=== PATIENT | female | born 1955 | race Caucasian/White ===

== ENCOUNTER → 2023-08-05 15:00 | Outpatient (REF) | payer MEDICARE, SELFPAY | LOC: HWRCS 15:00 | PROVIDERS: ATTENDING PHYSICIAN Internal Medicine Cardiovascular Disease; FAMILY PHYSICIAN Family Medicine | DX: R93.1 Abnormal findings on diagnostic imaging of heart and coronary circulation (principal); R06.09 Other forms of dyspnea; R94.31 Abnormal electrocardiogram [ECG] [EKG] | CPT/HCPCS: 93306 ==

== ENCOUNTER 2023-11-18 13:36 | Emergency (ER) | payer MEDICARE, SELFPAY ==
[2023-11-18 13:37] VITALS: BMI 26.7
[2023-11-18 13:43] VITALS: BP 137/69
--- NOTE | 2023-11-18 14:23 | ED.SKININJ ---
HPI-Injury
General
Chief Complaint: Bite
Time Seen by Provider: 11/18/23 13:47
History of Present Illness-Injury
Initial Injury comments:
68 yo female presents to the Emergency Dept for evaluation of R hand redness/swelling after being bitten by her cat yesterday, was started on Augmentin yesterday by her PCP. Tetanus was also updated. pt denies fever. Two doses of abx taken thus far
Review of Systems
Review of Systems
Allergies reviewed?: Yes
All Other Systems: ROS reviewed and negative except as documented in HPI and ROS
Phy Exam
Physical Exam
Physical Exam:
GEN: Well appearing, NAD, WDWN
HEENT: Oral mucosa moist, no scleral icterus
Cardiac: Regular rate
Lung: No respiratory distress, no tachypnea
MSK: Diffuse swelling/erythema to the R dorsal hand associated with two small puncture wounds. No lymphangitis. No pain w/ PROM to the R fingers
Skin: Good color, no pallor or jaundice, no rashes
Neuro: AO x3, moves all extremities freely
Psych: Calm, cooperative
Course
Orders/Labs/Results
Orders:
Orders
11/18/23 14:45
Complete Blood Count/With Diff Urgent
Comprehensive Metabolic Panel Urgent
Ampicillin/Sulbactam 3 G [Unasyn] 3 gm 0.9% Sodium Chloride 100 ml [Nss] 100 ml IV NOW
Abnormal Lab Results
11/18/23
14:45
Absolute Lymphs (auto) 1.1 L 10^3/uL
(1.2-3.4)
Lymphocytes % 17.6 L %
(20.5-51.1)
Potassium 3.4 L mmol/L
(3.5-5.1)
Chloride 97 L mmol/L
(98-107)
BUN 18 H mg/dl
(7-17)
Glucose 116 H mg/dl
(70-99)
11/18/23 14:45
11/18/23 14:45
Vital Signs
Initial and Last Documented VS:
Initial Vital Signs
Temp Pulse Resp BP Pulse Ox
99.0 F 77 19 137/69 95
11/18/23 13:43 11/18/23 13:43 11/18/23 13:43 11/18/23 13:43 11/18/23 13:43
Last Documented Vital Signs
Temp Pulse Resp BP Pulse Ox
99.0 F 77 16 137/69 95
11/18/23 13:43 11/18/23 13:43 11/18/23 14:00 11/18/23 13:43 11/18/23 13:43
MDM/Problems Addressed
MDM/Problems Addressed:
Pt is clinically well, do not see advanced infectious process warranting admission for IV abx. Gave dose of IV unasyn here, continue augmentin, close ED f/u if symptoms worsening
*Critical Care Note
Total Time (30-74mins, 75-104mins- exclusive of procedures): Not Applicable
ED Attending Note
-
Portions of this chart may have been created with voice recognition software.� Occasional wrong word or��sound alike� substitutions may have occurred due to the inherent limitations of voice recognition software.
Discharge Plan
Departure
Patient Disposition: Home (Routine Discharge)
Date of Disposition: 11/18/23
Time of Disposition: 15:47
Patient with high blood pressure during this ER visit?: No
Discharge Problem:
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
Instructions: Animal and human bites
Prescriptions:
No Action
fluoxetine 10 mg Tablet
10 mg PO DAILY
amoxicillin-pot clavulanate [Augmentin] 875-125 mg Tablet
1 tab PO BID
rosuvastatin [Crestor] 10 mg Tablet
10 mg PO DAILY
hydrochlorothiazide 12.5 mg Tablet
12.5 mg PO DAILY
acetaminophen [Tylenol] 325 mg Tablet
650 mg PO BIDPRN PRN (Reason: mild pain)
aspirin 81 mg Tablet,Delayed Release (Dr/Ec)
81 mg PO DAILY
cholecalciferol (vitamin D3) [Vitamin D3] 25 mcg (1,000 unit) Tablet
25 mcg PO DAILY
Referrals:
NONE,* [Family Provider] -
Activity Restrictions/Additional Instructions:
Continue Augmentin
Elevate the hand to decrease swelling
Ice often
Interventions
Interventions:
*Risk Screen - Suicide Last Done: 11/18/23 14:03
*General Assessment Last Done: 11/18/23 14:03
*Neglect/Abuse Screening Last Done: 11/18/23 14:03
ED- Fall Risk Assessment Last Done: 11/18/23 14:03
*Nursing Disposition Last Done: 11/18/23 15:48
ED-Skin Assessment Last Done: 11/18/23 14:03
Discharge Date and Time
Discharge Date/Time: 11/18/23 15:48
Print Language: POLISH
[2023-11-18] MEDS: UNASYN IV (15:00)
[2023-11-18 15:07] LABS: % Basophils 0.5 % (0-2); % Eosinophils 2.4 % (0-6); % Immature Granulocytes 0.3 % (0-0.5); % Lymphocytes 17.6 % (20.5-51.1); % Monocytes 7.9 % (1.7-9.3); % Neutrophils 71.3 % (42.2-75.2); Absolute Eosinophils 0.2 10^3/uL (0-0.7); Absolute Lymphocytes 1.1 10^3/uL (1.2-3.4); Absolute Monocytes 0.5 10^3/uL (0.1-0.6); Absolute Neutrophils 4.4 10^3/uL (1.4-6.5); Hematocrit 40.8 % (37.0-47.0); Hemoglobin 13.9 g/dL (12.0-16.0); Mean Corp Hgb Conc. 34.1 g/dL (33.0-37.0); Mean Corpuscular Hgb 30.4 pg (27.0-31.0); Mean Corpuscular Volume 89.3 fL (81.0-99.0); Mean Platelet Volume 9.3 fL (7.4-10.4); Nucleated Red Blood Cells % 0 %; Platelet Count 221 10^3/uL (130-400); Red Blood Cell Count 4.57 10^6/uL (4.20-5.40); Red Cell Dist. Width 12.4 % (11.5-14.5); White Blood Cell Count 6.2 10^3/uL (4.8-10.8)
[2023-11-18 15:19] LABS: ALT (SGPT) 32 U/L (0-35); AST (SGOT) 30 U/L (14-36); Albumin 4.7 g/dl (3.5-5.0); Alkaline Phosphatase 89 U/L (38-126); Blood Urea Nitrogen 18 mg/dl (7-17); Calcium 9.6 mg/dl (8.4-10.2); Carbon Dioxide 29 mmol/L (22-30); Chloride 97 mmol/L (98-107); Estimated Creatinine Clearance 65 ml/min; Glucose 116 mg/dl (70-99); Potassium 3.4 mmol/L (3.5-5.1); Sodium 142 mmol/L (135-145); Total Bilirubin 0.8 mg/dl (0.2-1.3); Total Protein 7.3 g/dl (6.3-8.2); eGFR > 60.00
== END 2023-11-18 15:48 | disposition home or self-care (01) ==
LOC: EMR 13:36
PROVIDERS: Physician Assistant; EMERGENCY PHYSICIAN Emergency Medicine
DX: L03.113 Cellulitis of right upper limb (principal); A28.0 Pasteurellosis; W55.01XA Bitten by cat, initial encounter
CPT/HCPCS: 99284; 96365; 80053; 85025

== ENCOUNTER 2023-11-19 15:24 | Observation (INO) | payer MEDICARE, SELFPAY ==
[2023-11-19 11:48] VITALS: BP 145/72
--- NOTE | 2023-11-19 12:23 | ED.GENMED ---
History of Present Illness
General
Chief Complaint: Skin Problem
Source: patient
Exam Limitations: none
Time Seen by Provider: 11/19/23 12:14
Nursing documentation reviewed up to this point in time: agreed with
History of Present Illness
History of Present Illness:
Patient is a 68-year-old female who presents to the ER for evaluation. Patient had a cat bite 2 days ago was seen here yesterday for right hand swelling and redness. She was initially started on Augmentin but came to the ER yesterday because of
this redness. She was given 1 dose of Unasyn and instructed to take Augmentin. It initially occurred once as documented she did take Augmentin Wednesday evening Augmentin yesterday morning had a dose of Unasyn here in the hospital and also had
Augmentin this morning. She went to her family doctor today because although swelling is improving she has had extension of the redness. She denies any fever chills she does not feel ill.
Review of Systems
Review of Systems
Allergies reviewed?: Yes
All Other Systems: ROS reviewed and negative except as documented in HPI and ROS
Constitutional: Reports no symptoms; Denies fever, fatigue or chills
Musculoskeletal: Reports other (Cat bite to right hand with swelling/redness )
Skin: Reports other (see above )
Neurological: Reports no symptoms
Psychiatric: Reports no symptoms
Phy Exam
General Physical Exam
General Presentation: no apparent distress
General age: appears stated age
General Skin: warm and dry
General Habitus: normal
General Mental: alert
General Hydration: appears well hydrated
Neurological Exam
Neurological Exam: alert and oriented x3
Musculoskeletal Exam
Musculoskeletal Exam: other (Right upper EXTR and strong pulses patient with mild dorsal swelling and erythema to the right hand with extension of erythema to proximal wrist and dorsal forearm)
Skin Exam
Skin Exam: normal color and warm/dry
Psychiatric Exam
Psychiatric Exam: normal mood/affect
Course
Orders/Labs/Results
Orders:
Orders
11/19/23 13:36
IV Insert/Care/Rem.- Treatment PRN
11/19/23 13:52
Complete Blood Count/With Diff Urgent
Comprehensive Metabolic Panel Urgent
Ampicillin/Sulbactam 3 G [Unasyn] 3 gm 0.9% Sodium Chloride 100 ml [Nss] 100 ml IV NOW
11/19/23 15:07
Admit/Transfer Patient As Directed
Co-Sign Provider:
Level of Care: Observation services
Assign to:: Medical/Surgical
Physician / Group: rambo
Diagnosis: cat bite cellulitis
PRN Pain Medication Management As Directed
May give lesser potent ordered pain med per pt: Yes
preference::
Protocol:: Medication orders for pain may be administered in a
manner that supports deferring to patient preference
when the pt is:
- Requesting an ordered lesser potent pain medication.
Least to most potent pain medications are defined
as: acetaminophen < NSAID < tramadol < opioids
(morphine, oxycodone, hydromorphone).
- Requesting a lesser dose of the same medication IF
ORDERED.
- Requesting a less intrusive route of administration
if both routes are prescribed by the provider (PO <
IV).
11/19/23 15:08
Code Status As Directed
Resuscitation Status: Full Code
Abnormal Lab Results
11/19/23
13:52
Absolute Lymphs (auto) 0.9 L 10^3/uL
(1.2-3.4)
Lymphocytes % 15.9 L %
(20.5-51.1)
Glucose 124 H mg/dl
(70-99)
11/19/23 13:52
11/19/23 13:52
Vital Signs
Initial and Last Documented VS:
Initial Vital Signs
Temp Pulse Resp BP Pulse Ox
98.8 F 77 16 145/72 98
11/19/23 11:48 11/19/23 11:48 11/19/23 11:48 11/19/23 11:48 11/19/23 11:48
Last Documented Vital Signs
Temp Pulse Resp BP Pulse Ox
98.8 F 77 16 127/75 94
11/19/23 11:48 11/19/23 11:48 11/19/23 11:48 11/19/23 13:06 11/19/23 13:06
Rag Production Worker consulted with Physician
Rag Production Worker consulted with physician?: Yes
Name of Physician Consulted: Perez
MDM/Problems Addressed
Differential Diagnosis Includes:
Not limited to infected cat bite
MDM/Problems Addressed:
Patient is a 68-year-old female got bit by her own cat on Wednesday night took a dose of Augmentin took a dose yesterday however came to the ER yesterday because of increasing redness. She was given Unasyn here in the ER and had blood work checked
yesterday which was negative with a normal white count 6.2. She took a dose of Augmentin today. She reports that hand swelling is getting better however she has had extension of the redness. Her family doctor saw this and sent her here to the ER
for evaluation. She is nontoxic she denies any fever chills.
Patient was eval by ED physician, I also reviewed with infectious disease. Patient's blood work was checked today white count remains normal however with extension of erythema and multiple doses of Augmentin and dose of IV yesterday will admit
*Critical Care Note
Total Time (30-74mins, 75-104mins- exclusive of procedures): Not Applicable
ED Attending Note
-
Portions of this chart may have been created with voice recognition software.� Occasional wrong word or��sound alike� substitutions may have occurred due to the inherent limitations of voice recognition software.
Discharge Plan
Departure
Patient Disposition: Admit
Date of Disposition: 11/19/23
Time of Disposition: 14:22
Admit to: Med/Surg
Admit to doctor: hospitalist
Presentation/result/management discussed w/ accepting MD/DO: Hospitalist
Patient with high blood pressure during this ER visit?: No
Covid-19: Not Applicable
Discharge Problem:
Infected cat bite
Interventions
Interventions:
*Risk Screen - Suicide Last Done: 11/19/23 11:48
*General Assessment Last Done: 11/19/23 11:48
*Neglect/Abuse Screening Last Done: 11/19/23 11:48
[2023-11-19 13:05] VITALS: BMI 30.4
[2023-11-19 13:06] VITALS: BP 127/75
[2023-11-19 14:00] LABS: % Basophils 0.5 % (0-2); % Eosinophils 2.2 % (0-6); % Immature Granulocytes 0.3 % (0-0.5); % Lymphocytes 15.9 % (20.5-51.1); % Monocytes 7.8 % (1.7-9.3); % Neutrophils 73.3 % (42.2-75.2); Absolute Eosinophils 0.1 10^3/uL (0-0.7); Absolute Lymphocytes 0.9 10^3/uL (1.2-3.4); Absolute Monocytes 0.5 10^3/uL (0.1-0.6); Absolute Neutrophils 4.3 10^3/uL (1.4-6.5); Hematocrit 39.7 % (37.0-47.0); Hemoglobin 13.7 g/dL (12.0-16.0); Mean Corp Hgb Conc. 34.5 g/dL (33.0-37.0); Mean Corpuscular Hgb 30.2 pg (27.0-31.0); Mean Corpuscular Volume 87.4 fL (81.0-99.0); Mean Platelet Volume 9.9 fL (7.4-10.4); Nucleated Red Blood Cells % 0 %; Platelet Count 233 10^3/uL (130-400); Red Blood Cell Count 4.54 10^6/uL (4.20-5.40); Red Cell Dist. Width 12.2 % (11.5-14.5); White Blood Cell Count 5.9 10^3/uL (4.8-10.8)
[2023-11-19 14:16] LABS: ALT (SGPT) 29 U/L (0-35); AST (SGOT) 27 U/L (14-36); Albumin 4.3 g/dl (3.5-5.0); Alkaline Phosphatase 94 U/L (38-126); Blood Urea Nitrogen 17 mg/dl (7-17); Calcium 9.7 mg/dl (8.4-10.2); Carbon Dioxide 29 mmol/L (22-30); Chloride 100 mmol/L (98-107); Estimated Creatinine Clearance 92 ml/min; Glucose 124 mg/dl (70-99); Potassium 3.9 mmol/L (3.5-5.1); Sodium 141 mmol/L (135-145); Total Bilirubin 0.6 mg/dl (0.2-1.3); Total Protein 6.6 g/dl (6.3-8.2); eGFR > 60.00
[2023-11-19] MEDS: UNASYN IV ×2 (14:51→19:49)
--- NOTE | 2023-11-19 15:10 | HPS.HSE ---
Family Physician
-
Family Physician: Vinita Yuen
Chief Complaint
-
right wrist swelling
History of Present Illness
68-year-old female past medical history of breast cancer status postmastectomy/reconstruction, hypertension, hypercholesterolemia, depression, presenting for skin infection. She had a multiple cat bites 2 days ago and was started on Augmentin
yesterday but came here yesterday for right hand swelling and redness. He was given 1 dose of Unasyn and told to continue taking Augmentin. She went to see her family doctor today because although the swelling is improved she has had extension of
the redness up the wrist. She denies any fevers or chills.
She drinks a glass of wine every day. She is a former smoker.
Medical History
Past Medical History
Past Medical History: Reports Other (breast cancer status postmastectomy/reconstruction, hypertension, hypercholesterolemia, depression,)
Past Surgical History: Reports Other ( Right-sided mastectomy/breast reconstruction, tummy tuck)
Social History
Tobacco: Former Smoker
Alcohol: Daily
Drug: None
Family History
Family History: Not pertinent
Allergies / Home Medications
Allergies reflects when Allergies were last updated in [employer].
Home Medications with original date entered in [employer]
Allergy/Medication List:
Allergies
Allergy/AdvReac Type Severity Reaction Status Date / Time
iodine Allergy Itching Verified 11/19/23 11:48
Home Medications
amoxicillin 875 mg-potassium clavulanate 125 mg tablet 1 tab PO BID infection 11/18/23
aspirin 81 mg tablet,delayed release 81 mg PO DAILY Blood Clot Prevention/Tx 11/18/23
cholecalciferol (vitamin D3) 25 mcg (1,000 unit) tablet (Vitamin D3) 25 mcg PO DAILY Supplement 11/18/23
fluoxetine 10 mg tablet 10 mg PO DAILY depression/anxiety 11/18/23
hydrochlorothiazide 12.5 mg tablet 12.5 mg PO DAILY Blood Pressure 11/18/23
rosuvastatin 10 mg tablet 10 mg PO DAILY High Cholesterol 11/18/23
ibuprofen 400 mg tablet 400 mg PO Q6HPRN PRN mild pain 11/19/23
Review of Systems
-
History Source: Patient
A 12 point ROS was completed and negative except as noted: Yes
Constitutional: Reports No Symptoms
EENT: Reports No Symptoms
Respiratory: Reports No Symptoms
Cardiac: Reports No Symptoms
Abdomen/GI: Reports No Symptoms
: Reports No Symptoms
Musculoskeletal: Reports No Symptoms
Skin: Reports See HPI
Neurological: Reports No Symptoms
Endocrine: Reports No Symptoms
Hematologic/Lymphatic: Reports No Symptoms
Psych: Reports No Symptoms
Physical Exam
Vital Signs
Vital Signs
Temp Pulse Resp BP Pulse Ox
98.8 F 77 16 127/75 94
11/19/23 11:48 11/19/23 11:48 11/19/23 11:48 11/19/23 13:06 11/19/23 13:06
Physical Exam
General: Well Developed, Well Nourished and No Apparent Distress
HEENT: NormoCephalic, Moist mucous membranes and Atraumatic
Respiratory: Clear
Cardiac: S1/S2 and Regular Rhythm; No Murmur or Rub
GI: Soft, Non Tender, Non Distended and Normal Bowel Sounds; No Organomegaly
Rectal: Deferred by Provider
Musculoskeletal: No Clubbing, No Cyanosis and No Edema
Skin: Other (right wrist bite incisions, wrist tenderness and erythema and swelling ); No Rash
Neuro: Nonfocal/grossly intact
Laboratory Results
-
11/19/23 13:52
11/19/23 13:52
Laboratory Results
Total Bilirubin 0.6 mg/dl (0.2-1.3) 11/19/23 13:52
AST 27 U/L (14-36) 11/19/23 13:52
ALT 29 U/L (0-35) 11/19/23 13:52
Alkaline Phosphatase 94 U/L (38-126) 11/19/23 13:52
Data Reviewed
-
Lab Data: Labs Reviewed by me
Old Records: Reviewed
Impression/Plan
-
IMPRESSION:
PLAN:
# Cat bite cellulitis of right wrist
-Unasyn
Breast cancer status post mastectomy/breast reconstruction
Essential hypertension
-Continue hydrochlorothiazide
-Continue prophylactic aspirin
Anxiety/depression
-Continue fluoxetine
Hyperlipidemia
-Continue statin
Full code
DVT prophylaxis�heparin
Regular diet
[2023-11-19 17:22] VITALS: BMI 30.6
[2023-11-19 17:23] VITALS: BP 137/68
[2023-11-19] MEDS: HEPARIN 5000 UNITS SC (20:04)
[2023-11-19 23:36] VITALS: BP 130/59
[2023-11-20] MEDS: UNASYN IV ×4 (01:34→20:17)
[2023-11-20 07:15] VITALS: BP 139/84
[2023-11-20 07:15] LABS: % Basophils 0.7 % (0-2); % Eosinophils 5.6 % (0-6); % Immature Granulocytes 0.2 % (0-0.5); % Lymphocytes 20.4 % (20.5-51.1); % Monocytes 8.7 % (1.7-9.3); % Neutrophils 64.4 % (42.2-75.2); Absolute Eosinophils 0.2 10^3/uL (0-0.7); Absolute Lymphocytes 0.9 10^3/uL (1.2-3.4); Absolute Monocytes 0.4 10^3/uL (0.1-0.6); Absolute Neutrophils 2.8 10^3/uL (1.4-6.5); Hematocrit 37.7 % (37.0-47.0); Hemoglobin 13.2 g/dL (12.0-16.0); Mean Corpuscular Hgb 31.2 pg (27.0-31.0); Mean Corpuscular Volume 89.1 fL (81.0-99.0); Mean Platelet Volume 9.4 fL (7.4-10.4); Nucleated Red Blood Cells % 0 %; Platelet Count 185 10^3/uL (130-400); Red Blood Cell Count 4.23 10^6/uL (4.20-5.40); Red Cell Dist. Width 12.2 % (11.5-14.5); White Blood Cell Count 4.3 10^3/uL (4.8-10.8)
[2023-11-20] MEDS: CRESTOR 10 MG PO (07:57)
[2023-11-20] MEDS: PROZAC 10 MG PO (07:57)
[2023-11-20] MEDS: HEPARIN 5000 UNITS SC ×2 (07:58→20:17)
[2023-11-20] MEDS: ORETIC 12.5 MG PO (07:58)
[2023-11-20] MEDS: VITAMIN D3 (cholecalciferol) 25 MCG PO (07:58)
[2023-11-20] MEDS: ASPIR LOW (ENTERIC COATED) 81 MG PO (07:58)
[2023-11-20 08:03] LABS: ALT (SGPT) 27 U/L (0-35); AST (SGOT) 24 U/L (14-36); Albumin 3.7 g/dl (3.5-5.0); Alkaline Phosphatase 81 U/L (38-126); Blood Urea Nitrogen 11 mg/dl (7-17); Calcium 9.2 mg/dl (8.4-10.2); Carbon Dioxide 25 mmol/L (22-30); Chloride 106 mmol/L (98-107); Estimated Creatinine Clearance 92 ml/min; Glucose 100 mg/dl (70-99); Sodium 143 mmol/L (135-145); Total Bilirubin 0.5 mg/dl (0.2-1.3); eGFR > 60.00
--- NOTE | 2023-11-20 09:33 | PTCARENOTE ---
Assumed care of pt from previous nurse. pt denies pain. pt right hand redness and swelling improving. pt call oliver is within reach, pt rings stepan. will cont to monitor.
--- NOTE | 2023-11-20 09:45 | W.PN.HOSP.TC ---
Today's Communication/Plan
-
see bold
Assessment / Plan
Assessment / Plan
Gen: NAD, AAOx3.
Eyes: EOMI, PERRLA, no scleral icterus.
Neck: supple.
CV: RRR, +S1/S2, no m/r/g.
Resp: CTAB, no rales, wheezes, or rhonchi.
Abd: +BS, soft, NT, ND
Skin: Right upper extremity with mild cellulitis and mild soft tissue edema
Neuro: CN 2-12 intact, non-focal.
Psych: Normal mood and affect.
Cat bite cellulitis of right wrist
-cont Unasyn
Other problems:
Breast cancer status post mastectomy/breast reconstruction
Essential hypertension: cont HCTZ
Anxiety/depression: Continue fluoxetine
Hyperlipidemia: Continue statin
Obesity due to excess calories
FULL/heparin
Anticipated Discharge: Within 24 hours
Subjective/Interval History
-
Date of Service: November 20, 2023
Patient states cellulitis has improved significantly.
Objective Data
-
Labs:
Laboratory Results
11/20/23
06:21
WBC 4.3 L
Hgb 13.2
Hct 37.7
Plt Count 185 D
Sodium 143
Potassium 4.0
Chloride 106
Carbon Dioxide 25
BUN 11
Creatinine 0.5 L
Glucose 100 H
Calcium 9.2
Total Bilirubin 0.5
AST 24
ALT 27
Alkaline Phosphatase 81
Vital Signs:
Vital Signs
Temp Pulse Resp BP Pulse Ox
98.0 F 65 16 139/84 95
11/20/23 07:15 11/20/23 07:15 11/20/23 07:15 11/20/23 07:15 11/20/23 07:30
I&O
11/19/23 11/20/23 11/21/23
06:59 06:59 06:59
Intake Total 440 / 440
Balance 440 / 440
--- NOTE | 2023-11-20 14:42 | CM ---
Patient seen bedside.
IA completed.
DX cellulitis s/p cat bite.
Patient lives with partner in a 2 story home with 1 step to enter.
Patient independent prior to admission without assistive devices.
patient drives, retired.
patient had VN in the remote past.
Patient aware of CM availability should needs arise.
YANG form completed.
PCP: Dr Jaylon Yuen
Pharmacy: [facility].
Plan: home, watch for home care needs.
[2023-11-20 15:35] VITALS: BP 138/64
[2023-11-20 23:00] VITALS: BP 152/72
[2023-11-21] MEDS: UNASYN IV ×2 (01:34→09:07)
[2023-11-21 07:15] VITALS: BP 135/70
[2023-11-21] MEDS: HEPARIN SC (09:06)
[2023-11-21] MEDS: VITAMIN D3 (cholecalciferol) 25 MCG PO (09:07)
[2023-11-21] MEDS: ASPIR LOW (ENTERIC COATED) 81 MG PO (09:07)
[2023-11-21] MEDS: PROZAC 10 MG PO (09:07)
[2023-11-21] MEDS: ORETIC 12.5 MG PO (09:08)
[2023-11-21] MEDS: CRESTOR 10 MG PO (09:08)
--- NOTE | 2023-11-21 10:05 | W.PN.HOSP.TC ---
Today's Communication/Plan
-
d/c
Assessment / Plan
Assessment / Plan
Gen: NAD, AAOx3.
Eyes: EOMI, PERRLA, no scleral icterus.
Neck: supple.
CV: remains RRR, +S1/S2, no m/r/g.
Resp: remains CTAB, no rales, wheezes, or rhonchi.
Abd: +BS, soft, NT, ND
Skin: Right upper extremity with minimal soft tissue edema, no evidence of cellulitis, puncture wound on dorsum of R wrist
Neuro: CN 2-12 intact, non-focal.
Psych: Normal mood and affect.
Cat bite cellulitis of right wrist
-has been on Unasyn
-d/c on augmentin
Other problems:
Breast cancer status post mastectomy/breast reconstruction
Essential hypertension: cont HCTZ
Anxiety/depression: Continue fluoxetine
Hyperlipidemia: Continue statin
Obesity due to excess calories
FULL/heparin
Total time spent on d/c = 31 min. This included today's physical exam, progress note, review of laboratory and diagnostic data, preparation of discharge documents and prescriptions, and discussions about the pt's hospital course and discharge plan
with the patient and other medical aides teacher involved in the patient's care.
Anticipated Discharge: Today
Subjective/Interval History
-
Date of Service: November 21, 2023
No new complaints.
Objective Data
-
Vital Signs:
Vital Signs
Temp Pulse Resp BP Pulse Ox
97.9 F 70 16 135/70 94
11/21/23 07:15 11/21/23 07:15 11/21/23 07:15 11/21/23 07:15 11/21/23 07:15
I&O
11/20/23 11/21/23 11/22/23
06:59 06:59 06:59
Intake Total 440 / 440 1140 / 1140
Balance 440 / 440 1140 / 1140
--- NOTE | 2023-11-21 13:07 | W.DCSUMMARY ---
Discharge Summary
Discharge Data
Date of Admission: 11/19/23
Date of Discharge: 11/21/23
-
Pending Results: No
Hospital Course
Primary diagnoses:
Cat bite cellulitis of right wrist and arm
Secondary diagnoses:
Breast cancer status post mastectomy/breast reconstruction
Essential hypertension
Anxiety/depression
Hyperlipidemia
Obesity due to excess calories
Consultants:
None
Imaging:
None
Hospital course: 68-year-old female presented with cat bite cellulitis of the right wrist and arm as outlined H&P done on admission. She had just been started on Augmentin sent but her symptoms and physical exam findings were worsening. She was
placed on Unasyn and had a very rapid recovery. She was discharged to complete her original course of Augmentin. This was not an Augmentin failure.
Discharge Plan
-
Patient Disposition: Home (Routine Discharge)
Discharge Diagnosis/Procedures: Right hand/arm cellulitis
Condition: Good
Diet: Low Cholesterol and Low Sodium
Activity: As tolerated
Driving Restrictions: As prior to admission
Referrals:
Vinita Yuen DO [Family Provider] - in less than 1 week
Prescriptions:
Continued
fluoxetine 10 mg Tablet
10 mg PO DAILY
amoxicillin-pot clavulanate 875-125 mg Tablet
1 tab PO BID
rosuvastatin 10 mg Tablet
10 mg PO DAILY
hydrochlorothiazide 12.5 mg Tablet
12.5 mg PO DAILY
aspirin 81 mg Tablet,Delayed Release (Dr/Ec)
81 mg PO DAILY
cholecalciferol (vitamin D3) [Vitamin D3] 25 mcg (1,000 unit) Tablet
25 mcg PO DAILY
ibuprofen 400 mg Tablet
400 mg PO Q6HPRN PRN (Reason: mild pain)
Discharge Orders:
Discharge Patient (As Directed); Ordered 11/21/23
Ordered By: Evan Haley
Discharge Date and Time
Discharge Date/Time: 11/21/23 11:08
Print Language: NIGERIEN
== END 2023-11-21 11:08 | disposition home or self-care (01) ==
LOC: 4 WEST ACU 15:24
PROVIDERS: Nurse Practitioner; ADMITTING PHYSICIAN Hospitalist; ATTENDING PHYSICIAN Internal Medicine; EMERGENCY PHYSICIAN Emergency Medicine; FAMILY PHYSICIAN Family Medicine
DX: L03.113 Cellulitis of right upper limb (principal); M79.89 Other specified soft tissue disorders; S60.571A Other superficial bite of hand of right hand, initial encounter; W55.01XA Bitten by cat, initial encounter; Y93.89 Activity, other specified; Y92.9 Unspecified place or not applicable; I10 Essential (primary) hypertension; E66.09 Other obesity due to excess calories; E78.00 Pure hypercholesterolemia, unspecified; F41.9 Anxiety disorder, unspecified; F32.A Depression, unspecified; Z87.891 Personal history of nicotine dependence; Z91.041 Radiographic dye allergy status; Z88.8 Allergy status to other drugs, medicaments and biological substances; Z79.82 Long term (current) use of aspirin; Z85.3 Personal history of malignant neoplasm of breast; Z68.30 Body mass index [BMI] 30.0-30.9, adult; Z90.10 Acquired absence of unspecified breast and nipple
CPT/HCPCS: 80053; 85025; 96365; 99285; G0378

== ENCOUNTER → 2024-03-02 15:15 | Outpatient (REF) | payer MEDICARE, SELFPAY | LOC: HWWDC 15:15 | PROVIDERS: ATTENDING PHYSICIAN Surgery Surgical Oncology; FAMILY PHYSICIAN Family Medicine | DX: Z12.31 Encounter for screening mammogram for malignant neoplasm of breast (principal) | CPT/HCPCS: 77063; 77067 ==